=== PATIENT | female | born 1945 | race African-American/Black ===

== ENCOUNTER 2017-07-17 11:47 | Emergency (ER) | payer MEDICARE, OTHER ==
[~2017-07-17] VITALS: Ht 165.1 cm; Wt 60.0 kg
[~2017-07-17 11:47] MED LIST: BUDE6.9H INH
[2017-07-17 13:10] LABS: BASOPHILS % 0.8 % (0.0-2.0); EOSINOPHILS % 1.9 % (0.0-5.0); HEMATOCRIT. 28.8 % (36.0-48.0); HEMOGLOBIN. 9.8 g/dL (12.0-16.0); LYMPHOCYTES % 30.3 % (20.0-50.0); MEAN CORPUSCULAR HEMOGLOBIN 33.4 pg (28.0-32.0); MEAN CORPUSCULAR VOLUME 98.8 fL (81.0-99.0); MEAN PLATELET VOLUME 10.1 fl (7.4-10.4); MONOCYTES % 7.3 % (2.0-8.0); NEUTROPHILS % 59.7 % (40.0-76.0); PLATELET 149 x1000/uL (130-400); RED BLOOD CELL COUNT 2.92 mill/uL (4.2-5.4); RED CELL DISTRIBUTION WIDTH 12.5 % (11.6-14.6)
[2017-07-17 13:16] LABS: INR 1.1; PROTHROMBIN TIME 11.3 sec (9.4-11.6)
[2017-07-17 13:25] LABS: CARBON DIOXIDE 31 mEq/L (21-32); CHLORIDE 101 mEq/L (98-107); TROPONIN I < 0.02 ng/mL (0.00-0.04)
[2017-07-17] MEDS ORDERED: LIDOCAINE HCL/PF 1% 2ML VIAL ONE (14:13)
[2017-07-17 14:41] LABS: BG BASE EXCESS 3.5 mmol/L (-2.0-2.0); BG CARBOXYHEMOGLOBIN 0.3 % (0.5-1.5); BG FRACTION INSPIRED OXYGEN 28; BG HCO3 ACT 29.3 mmol/L (22.0-26.0); BG METHEMOGLOBIN 0.1 % (0.0-1.5); BG OXYHEMOGLOBIN 97.6 % (94.0-97.0); BG PCO2 51.1 mmHg (35.0-45.0); BG PH 7.377 (7.350-7.450); BG PO2 116.2 mmHg (75.0-100.0); BG SAMPLE SITE RIGHT RADIAL; BG TOTAL HEMOGLOBIN 9.4 g/dL (12.0-18.0); BG VENT MODE NASAL CANNULA
[2017-07-17 15:50] VITALS: BP 120/70
== END 2017-07-17 16:06 | disposition home or self-care (01) ==
LOC: ER 11:47
DX: R06.03 Acute respiratory distress (principal); I50.9 Heart failure, unspecified; I44.0 Atrioventricular block, first degree; J45.909 Unspecified asthma, uncomplicated; D64.9 Anemia, unspecified
CPT/HCPCS: 36415; 36600; 71010; 80053; 82375; 82805; 83880; 84484; 85025; 85610; 93005; 99285; J3490

== ENCOUNTER 2019-01-25 15:28 | Inpatient (IN) | payer MEDICARE, OTHER ==
[~2019-01-25] VITALS: Ht 172.7 cm; Wt 47.6 kg
[2019-01-25 16:37] LABS: HEMATOCRIT. 26.1 % (36.0-48.0); HEMOGLOBIN. 8.8 g/dL (12.0-16.0); MEAN CORPUSCULAR HEMOGLOBIN 33.7 pg (28.0-32.0); MEAN CORPUSCULAR VOLUME 99.7 fL (81.0-99.0); MEAN PLATELET VOLUME 10.3 fl (7.4-10.4); PLATELET 121 x1000/uL (130-400); RED BLOOD CELL COUNT 2.62 mill/uL (4.2-5.4); RED CELL DISTRIBUTION WIDTH 12.6 % (11.6-14.6)
[2019-01-25 16:43] LABS: CHLORIDE 103 mEq/L (98-107); INR 1.1; PROTHROMBIN TIME 11.7 sec (9.6-11.0)
[2019-01-25 16:59] LABS: PLATELET ESTIMATE DECREASED
[2019-01-25] MEDS ORDERED: POTASSIUM BICARB/CIT ACID 25 MEQ TABLET.EFF PO ONE (17:15)
[2019-01-25] MEDS ORDERED: CEFTRIAXONE 1 G PREMIX 50 ML IV ONE (18:00)
[2019-01-25] MEDS ORDERED: AZITHROMYCIN 500 MG in DEXT 5% WATER 250 ML IV SCH (18:00)
[2019-01-26] VITALS (7 sets, daily range): BP systolic 97–112; BP diastolic 40–53
[2019-01-26] MEDS ORDERED: GUAIFENESIN 200MG/10ML SUGAR FREE UDC PO PRN
[2019-01-26] MEDS ORDERED: MAGNESIUM/ALUMINUM HYDROXIDE/SIMETHICONE 30ML UDC PO PRN
[2019-01-26] MEDS ORDERED: DOCUSATE SODIUM 100MG CAPSULE PO PRN
[2019-01-26] MEDS ORDERED: LORAZEPAM 0.5MG TABLET PO PRN
[2019-01-26] MEDS ORDERED: HYDROCODONE/ACETAMINOPHEN 5/325MG TABLET PO PRN
[2019-01-26] MEDS ORDERED: ONDANSETRON HCL 4MG/2ML INJ IV PRN
[2019-01-26] MEDS ORDERED: MORPHINE SULFATE 4 MG/ML CPJ (NOT FOR IM USE) IV PRN
[2019-01-26] MEDS ORDERED: ACETAMINOPHEN 325MG TABLET PO PRN
[2019-01-26] MEDS ORDERED: DIPHENHYDRAMINE 50MG/ML VIAL IV PRN
[2019-01-26] MEDS ORDERED: NA PHOS,M-B/NA PHOS,DI-BA ENEMA 118ML PR PRN
[2019-01-26] MEDS ORDERED: CLONIDINE 0.1MG TABLET PO PRN
[2019-01-26 00:40] LABS: CHLORIDE 103 mEq/L (98-107)
[2019-01-26] MEDS ORDERED: LEVOFLOXACIN 500MG PREMIX 100 ML IV NR (06:00)
[2019-01-26] MEDS: ASPIRIN 81MG EC TABLET PO SCH (08:46)
[2019-01-26] MEDS: ENOXAPARIN 40MG/0.4ML SYR SUBCUT SCH (09:00)
[2019-01-26] MEDS ORDERED: TRAMADOL 50MG TABLET PO PRN (16:30)
[2019-01-26] MEDS: BUDESONIDE 0.5MG/2ML NEB HHN SCH (21:33)
[2019-01-27] VITALS: BP 117/51
[2019-01-27 04:00] VITALS: BP 106/49
[2019-01-27 06:57] LABS: HEMATOCRIT. 25.1 % (36.0-48.0); HEMOGLOBIN. 8.2 g/dL (12.0-16.0); MEAN CORPUSCULAR HEMOGLOBIN 32.9 pg (28.0-32.0); MEAN CORPUSCULAR VOLUME 100.3 fL (81.0-99.0); MEAN PLATELET VOLUME 10.4 fl (7.4-10.4); PLATELET 182 x1000/uL (130-400); RED CELL DISTRIBUTION WIDTH 12.6 % (11.6-14.6)
[2019-01-27 07:16] LABS: CHLORIDE 104 mEq/L (98-107)
[2019-01-27 07:25] LABS: LDL CHOLESTEROL 197 mg/dL (5-100)
[2019-01-27 07:26] LABS: T4 FREE 0.45 ng/dL (0.76-1.46)
[2019-01-27 07:27] LABS: HDL CHOLESTEROL 46 mg/dL (40-59)
[2019-01-27 08:00] VITALS: BP 100/53
[2019-01-27] MEDS: BUDESONIDE 0.5MG/2ML NEB HHN SCH ×2 (08:36→21:38)
[2019-01-27] MEDS: IPRATROPIUM/ALBUTEROL 0.5-3(2.5)MG/3ML NEB INH PRN (08:36)
[2019-01-27] MEDS: ASPIRIN 81MG EC TABLET PO SCH (09:09)
[2019-01-27] MEDS: LEVOFLOXACIN 250MG PREMIX 50 ML IV SCH (09:09)
[2019-01-27] MEDS: ENOXAPARIN 40MG/0.4ML SYR SUBCUT SCH (09:14)
[2019-01-27 10:01] LABS: PLATELET ESTIMATE NORMAL
[2019-01-27 12:00] VITALS: BP 114/45
[2019-01-27 16:00] VITALS: BP 101/55
[2019-01-27 20:00] VITALS: BP 117/50
[2019-01-28] VITALS: BP 112/57
[2019-01-28 03:38] LABS: CLARITY URINE CLEAR (CLEAR); COLOR URINE YELLOW (YELLOW); KETONES URINE NEGATIVE (NEGATIVE); LEUKOCYTE ESTERASE URINE NEGATIVE (NEGATIVE); NITRITE URINE NEGATIVE (NEGATIVE); OCCULT BLOOD URINE NEGATIVE (NEGATIVE); PH URINE 5.5 (4.5-8.0); PROTEIN URINE NEGATIVE (NEGATIVE); UROBILINOGEN URINE 0.2 E.U./dL (0.2-1.0)
[2019-01-28 04:00] VITALS: BP 115/56
[2019-01-28 08:00] VITALS: BP 112/77
[2019-01-28] MEDS: LEVOFLOXACIN 250MG PREMIX 50 ML IV SCH (08:03)
[2019-01-28] MEDS: ASPIRIN 81MG EC TABLET PO SCH (09:11)
[2019-01-28] MEDS: ENOXAPARIN 40MG/0.4ML SYR SUBCUT SCH (09:11)
[2019-01-28] MEDS: BUDESONIDE 0.5MG/2ML NEB HHN SCH (10:27)
[2019-01-28] MEDS: IPRATROPIUM/ALBUTEROL 0.5-3(2.5)MG/3ML NEB INH PRN (10:31)
[2019-01-28] MEDS ORDERED: PREDNISONE 20MG TABLET PO SCH (11:45)
[2019-01-28 12:00] VITALS: BP 106/48
[2019-01-28] MEDS ORDERED: LIDOCAINE HCL/PF 1% 2ML VIAL ONE (12:00)
[2019-01-28] MEDS ORDERED: IPRATROPIUM/ALBUTEROL 0.5-3(2.5)MG/3ML NEB HHN SCH (12:00)
[2019-01-28 12:20] LABS: BG BASE EXCESS 2.4 mmol/L (-2.0-2.0); BG DEOXYHEMOGLOBIN 7.3 % (0.0-5.0); BG FRACTION INSPIRED OXYGEN 21; BG HCO3 ACT 27.1 mmol/L (22.0-26.0); BG METHEMOGLOBIN 0.3 % (0.0-1.5); BG OXYGEN SATURATION 92.7 % (92.0-98.5); BG OXYHEMOGLOBIN 92.4 % (94.0-97.0); BG PCO2 42.9 mmHg (35.0-45.0); BG PH 7.419 (7.350-7.450); BG PO2 65.6 mmHg (75.0-100.0); BG SAMPLE SITE RIGHT BRACHIAL; BG TOTAL HEMOGLOBIN 8.9 g/dL (12.0-18.0); BG VENT MODE ROOM AIR
[2019-01-28 13:10] LABS: BASOPHILS % 0.8 % (0.0-2.0); EOSINOPHILS % 2.4 % (0.0-5.0); HEMATOCRIT. 24.8 % (36.0-48.0); HEMOGLOBIN. 8.1 g/dL (12.0-16.0); LYMPHOCYTES % 11.3 % (20.0-50.0); MEAN CORPUSCULAR HEMOGLOBIN 32.7 pg (28.0-32.0); MEAN CORPUSCULAR VOLUME 99.6 fL (81.0-99.0); MEAN PLATELET VOLUME 10.7 fl (7.4-10.4); MONOCYTES % 6.3 % (2.0-8.0); NEUTROPHILS % 79.2 % (40.0-76.0); PLATELET 133 x1000/uL (130-400); RED BLOOD CELL COUNT 2.49 mill/uL (4.2-5.4); RED CELL DISTRIBUTION WIDTH 12.3 % (11.6-14.6)
[2019-01-28 13:18] LABS: CHLORIDE 103 mEq/L (98-107)
[2019-01-28 15:06] VITALS: BP 106/48
[2019-01-28] MEDS ORDERED: ATORVASTATIN CALCIUM 20MG TABLET PO SCH (21:00)
[2019-02-01] MEDS ORDERED: PREDNISONE 20MG TABLET PO SCH (09:00)
[2019-02-05] MEDS ORDERED: PREDNISONE 10MG TABLET PO SCH (09:00)
== END 2019-01-28 16:15 | DRG 137 ==
LOC: ER 15:28 → 7WST 18:01 → EDBEDREQ 18:09 → ENRESERV 21:44
PROVIDERS: ADMIT Internal Medicine; ATTEND Internal Medicine
DX: J69.0 Pneumonitis due to inhalation of food and vomit (principal); J96.01 Acute respiratory failure with hypoxia; I50.9 Heart failure, unspecified; I11.0 Hypertensive heart disease with heart failure; D64.9 Anemia, unspecified; E78.00 Pure hypercholesterolemia, unspecified; E78.5 Hyperlipidemia, unspecified; J06.9 Acute upper respiratory infection, unspecified; J44.9 Chronic obstructive pulmonary disease, unspecified; J84.9 Interstitial pulmonary disease, unspecified; M41.9 Scoliosis, unspecified; M81.0 Age-related osteoporosis without current pathological fracture; Z96.651 Presence of right artificial knee joint; M19.90 Unspecified osteoarthritis, unspecified site; W18.39XA Other fall on same level, initial encounter; Y93.89 Activity, other specified; Y92.89 Other specified places as the place of occurrence of the external cause; Z82.49 Family history of ischemic heart disease and other diseases of the circulatory system; Y99.8 Other external cause status
CPT/HCPCS: 36415; 36600; 71045; 73502; 73560; 80048; 80061; 82375; 82805; 83880; 84439; 84443; 84484; 93005; 97162; 99285; J0456; J0696; J1650; J1956; J3490; J7040; J7060; J7512; J7620; J7626